=== PATIENT | male | born 1950 | race Two or more races ===

== ENCOUNTER 2017-01-09 14:53 | Emergency (ER) | payer OTHER ==
[~2017-01-09] VITALS: Ht 170.2 cm; Wt 86.2 kg
--- NOTE | 2017-01-09 14:53 | NUR ---
PRESENTS SELF TO ED DT ANXIETY AND DEPRESSION. PATIENT STATED " THINGS DOESNT GET ANY BETTER". DENIES HI/SI. VSS
[2017-01-09] MEDS ORDERED: OLANZAPINE 10 MG VIAL IM ONE ×2 (15:57→16:00)
[2017-01-09 15:58] LABS: BASOPHILS % (AUTO) 0.1 % (0.0-2.0); EOSINOPHILS % (AUTO) 0.5 % (0.0-6.0); HEMATOCRIT 47 % (39-51); HEMOGLOBIN 15.7 g/dL (13.5-17.5); LYMPHOCYTES % (AUTO) 12.4 % (20.0-44.0); MEAN CORPUSCULAR HEMOGLOBIN 29 PG (26.0-33.0); MEAN CORPUSCULAR HGB CONC 34 g/dl (31.0-36.0); MEAN CORPUSCULAR VOLUME 87 fL (80-96); MONOCYTES # (AUTO) 0.5 /CMM (0.1-1.30); MONOCYTES % (AUTO) 6.3 % (2.0-12.0); NEUTROPHILS # (AUTO) 6.4 /CMM (1.8-8.9); NEUTROPHILS % (AUTO) 80.7 % (43.0-81.0); PLATELET COUNT (AUTO) 138 /CMM (150-450); RDW COEFFICIENT OF VARIATION 12.5 (11.5-15.0); RED BLOOD CELL COUNT(AUTO) 5.36 MIL/uL (4.5-6.0); WHITE BLOOD COUNT (AUTO) 7.9 K/uL (4.3-11.0)
[2017-01-09] MEDS ORDERED: WATER FOR INJECTION,STERILE 10 ML ONE (15:58)
[2017-01-09 16:02] LABS: CALCIUM, SERUM 9.1 mg/dL (8.5-10.1); CARBON DIOXIDE 30 mmol/L (21-32); CHLORIDE 101 mmol/L (98-107); CREATININE 1.1 mg/dL (0.6-1.3); GLUCOSE 348 mg/dL (74-106); POTASSIUM 4.1 mmol/L (3.5-5.1); SODIUM SERUM 139 mmol/L (136-145); UREA NITROGEN, BLOOD 31 mg/dL (7-18)
--- NOTE | 2017-01-09 16:04 | NUR ---
URINE SAMPLE SENT TO LAB
--- NOTE | 2017-01-09 16:04 | NUR ---
MEDICATED PT ORDERED
[2017-01-09 16:08] LABS: ALANINE AMINOTRANSFERASE 52 U/L (12-78); ALBUMIN 4.3 g/dL (3.4-5.0); ALCOHOL, BLOOD < 3 mg/dL (0-0); ALKALINE PHOSPHATASE 81 U/L (46-116); ASPARTATE AMINOTRANSFERASE 24 U/L (15-37); BILIRUBIN,DIRECT 0.1 mg/dL (0.0-0.2); BILIRUBIN,TOTAL 0.5 mg/dL (0.2-1.0); TOTAL PROTEIN, SERUM 7.2 g/dL (6.4-8.2)
[2017-01-09 16:09] LABS: ACETAMINOPHEN < 10 ug/ml (10-30); SALICYLATE 0.7 mg/dL (2.8-20.0)
[2017-01-09 16:27] LABS: APPEARANCE,URINE CLEAR (CLEAR); BILIRUBIN,URINE NEGATIVE (NEGATIVE); BLOOD, URINE TRACE Ery/uL (NEGATIVE); COLOR,URINE YELLOW (YELLOW); KETONES,URINE 1+ (NEGATIVE); LEUKOCYTE ESTERASE ,URINE NEGATIVE (NEGATIVE); NITRITE, URINE NEGATIVE (NEGATIVE); PH,URINE 5.5 (5.0-8.0); PROTEIN,URINE 1+ mg/dl (NEGATIVE); UGLUCOSE 3+ mg/dL (NEGATIVE); UROBILINOGEN,URINE 0.2 EU/dL (0.2)
[2017-01-09 16:36] LABS: BACTERIA,URINE 1+ /HPF (None Seen); MUCUS,URINE Moderate /LPF (None Seen); RBC,URINE 0-2 /HPF (0-2); SQUAMOUS EPITHELIAL CELL,UR 0-2 /HPF (None Seen)
[2017-01-09 16:37] LABS: YEAST,URINE Rare /HPF (None Seen)
[2017-01-09 17:38] VITALS: BP 148/83
--- NOTE | 2017-01-09 17:46 | NUR ---
Patient discharged to home in stable condition. Written and verbal after care instructions given. Patient verbalizes understanding of instruction.
== END 2017-01-09 17:47 | disposition home or self-care (01) ==
LOC: ER 15:00
DX: F32.9 Major depressive disorder, single episode, unspecified (principal); F41.9 Anxiety disorder, unspecified; E11.9 Type 2 diabetes mellitus without complications; I10 Essential (primary) hypertension; J45.909 Unspecified asthma, uncomplicated
CPT/HCPCS: 36415; 80048-TC; 80076-TC; 80305; 81000-TC; 85025-TC; A4606; G0480; J3490; Z7610

== ENCOUNTER 2017-02-06 10:51 | Inpatient (IN) | payer OTHER ==
[~2017-02-06] VITALS: Ht 172.7 cm; Wt 74.8 kg
--- NOTE | 2017-02-06 11:00 | NUR ---
PT AMBULATORY TO ER BED 08 ACCOMPANIED BY . HERE FOR MEDICAL AND PSYCH EVAL. C/O WORSENING DEPRESSION AND INSOMIA. PT APPEARS ANXIOUS HEALTH SCIENCES DEPARTMENT CHAIR BUT DENIES SI/HI. PLACED ON MONITOR. NAD NOTED. AWAITING MD SOTO.
--- NOTE | 2017-02-06 11:14 | NUR ---
DR SANDHU AT BEDSIDE FOR EVAL.
--- NOTE | 2017-02-06 11:24 | NUR ---
MACHINE LEATHER TRIMMER AT BEDSIDE FOR BLOOD DRAW.
[2017-02-06 11:38] LABS: BASOPHILS % (AUTO) 0.5 % (0.0-2.0); EOSINOPHILS # (AUTO) 0.1 /CMM (0.0-0.7); EOSINOPHILS % (AUTO) 1.4 % (0.0-6.0); HEMATOCRIT 44 % (39-51); HEMOGLOBIN 14.8 g/dL (13.5-17.5); LYMPHOCYTES # (AUTO) 1.2 /CMM (0.8-4.8); MEAN CORPUSCULAR HEMOGLOBIN 29 PG (26.0-33.0); MEAN CORPUSCULAR HGB CONC 34 g/dl (31.0-36.0); MEAN CORPUSCULAR VOLUME 85 fL (80-96); MONOCYTES # (AUTO) 0.6 /CMM (0.1-1.30); MONOCYTES % (AUTO) 8.6 % (2.0-12.0); NEUTROPHILS # (AUTO) 4.9 /CMM (1.8-8.9); NEUTROPHILS % (AUTO) 71.5 % (43.0-81.0); PLATELET COUNT (AUTO) 150 /CMM (150-450); RDW COEFFICIENT OF VARIATION 11.9 (11.5-15.0); RED BLOOD CELL COUNT(AUTO) 5.13 MIL/uL (4.5-6.0); WHITE BLOOD COUNT (AUTO) 6.9 K/uL (4.3-11.0)
[2017-02-06 11:42] LABS: APPEARANCE,URINE CLEAR (CLEAR); BILIRUBIN,URINE NEGATIVE (NEGATIVE); BLOOD, URINE NEGATIVE Ery/uL (NEGATIVE); COLOR,URINE YELLOW (YELLOW); KETONES,URINE TRACE (NEGATIVE); LEUKOCYTE ESTERASE ,URINE NEGATIVE (NEGATIVE); NITRITE, URINE NEGATIVE (NEGATIVE); PROTEIN,URINE NEGATIVE (NEGATIVE); UGLUCOSE 3+ mg/dL (NEGATIVE); UROBILINOGEN,URINE 0.2 EU/dL (0.2)
[2017-02-06 11:47] LABS: CARBON DIOXIDE 32 mmol/L (21-32); CHLORIDE 101 mmol/L (98-107); CREATININE 0.8 mg/dL (0.6-1.3); GLUCOSE 324 mg/dL (74-106); POTASSIUM 4.4 mmol/L (3.5-5.1); SODIUM SERUM 138 mmol/L (136-145); UREA NITROGEN, BLOOD 28 mg/dL (7-18)
[2017-02-06 11:53] LABS: ALANINE AMINOTRANSFERASE 61 U/L (12-78); ALCOHOL, BLOOD < 3 mg/dL (0-0); ALKALINE PHOSPHATASE 76 U/L (46-116); ASPARTATE AMINOTRANSFERASE 22 U/L (15-37); BILIRUBIN,DIRECT 0.1 mg/dL (0.0-0.2); BILIRUBIN,TOTAL 0.5 mg/dL (0.2-1.0); TOTAL PROTEIN, SERUM 6.9 g/dL (6.4-8.2)
[2017-02-06 11:56] LABS: ACETAMINOPHEN 0 ug/ml (10-30); SALICYLATE 0.3 mg/dL (2.8-20.0)
[2017-02-06 11:56] LABS: BACTERIA,URINE None seen /HPF (None Seen); RBC,URINE NONE SEEN /HPF (0-2); SQUAMOUS EPITHELIAL CELL,UR Rare /HPF (None Seen); WBC,URINE 0-2 /HPF (0-3); YEAST,URINE Rare /HPF (None Seen)
[2017-02-06] MEDS ORDERED: ATOR10TA PO (12:18)
[2017-02-06] MEDS ORDERED: INSU3INS6 SQ (12:18)
[2017-02-06] MEDS ORDERED: OLME40TA3 PO (12:18)
[2017-02-06] MEDS ORDERED: CARV25TA2 PO (12:18)
[2017-02-06] MEDS ORDERED: INSU100I8 SQ (12:18)
[2017-02-06] MEDS ORDERED: MONT10TA22 PO (12:18)
[2017-02-06] MEDS ORDERED: AMIT10TA6 PO (12:18)
--- NOTE | 2017-02-06 12:48 | NUR ---
CALLED [facility] CLINICIAN FOR PSYCH EVAL, ETA OVER 1 HOUR
--- NOTE | 2017-02-06 14:44 | NUR ---
ELY RN AT BEDSIDE FOR PSYCH EVAL.
--- NOTE | 2017-02-06 15:28 | NUR ---
REPORT GIVEN TO AMBER. PT AWAITNG TRANSFER TO FLOOR.
[2017-02-06 15:45] VITALS: BP 156/76
--- NOTE | 2017-02-06 15:45 | NUR ---
[id number]: PT IS 66 YEARS OLD FEMALE ADMITTED ON 5150 FOR GD. ACCORDING TO THE HOLD PT HAS WORSENING DEPRESSION AND ANXIETY FOR THE PAST FEW WEEKS. PT IS SHAKING IN FEAR AND EXTREMELY ANXIOUS. PT HAS BEEN UNABLE TO FUNCTION AND TAKE CARE OF THE HOUSE. PT WAS FEARFUL, CRYING, GRABBING AT THE BEDSHEETS AND HANDRAILS. PT STATED, "I HAVEN'T SLEPT AND I CAN'T EAT. I'M VERY AFRAID. I'M IN BAD SHAPE."HIS REPORTS THAT SHE CAN'T LEAVE PT ALONE AT HOME AND PT HAS LOST 30 POUNDS IN THE PAST FEW WEEKS. PT IS UNABLE TO CARE FOR SELF. PT HAS DM, HTN, ASTHMA, POSSIBLE DEMENTIA, DEPRESSION, ANXIETY, PARANOID. PROVIDE WITH PT'S RIGHT HAND BOOK. DISCUSS ABOUT MEAL TIMES AND AIR FRESH BREAKS. PT IS AMBULATORY, SELF-CARE, CONTINENT. SKIN ASSESSMENT DONE. MRSA DONE. NOTIFIED DR. WANG AND DR. GABRIEL. FAMILY PRESENT UPON ADMISSION. ALL PAPERWORK AND COMPUTER DOCUMENTED. WILL ENDORSE TO INCOMING NURSE TO DOUBLE CHECK ALL PAPERWORK AND COMPUTER DOCUMENTATION TO BE COMPLETE.
[2017-02-06 16:00] VITALS: BP 156/76
[2017-02-06] MEDS ORDERED: LORAZEPAM 0.5 MG TABLET PO PRN (16:00)
[2017-02-06] MEDS ORDERED: ACETAMINOPHEN 325 MG TABLET PO PRN (16:00)
[2017-02-06] MEDS ORDERED: MAG HYDROX/AL HYDROX/SIMETH 30 ML UDC PO PRN (16:00)
[2017-02-06] MEDS ORDERED: MAGNESIUM HYDROXIDE 30 ML UDC PO PRN (16:00)
[2017-02-06] MEDS ORDERED: DEXTROSE 50%-WATER 50 ML DISP.SYRIN IV PRN (17:00)
[2017-02-06] MEDS: BLOOD SUGAR DIAGNOSTIC 1 EACH STRIP IN SCH ×2 (17:37→22:01)
--- NOTE | 2017-02-06 17:38 | NUR ---
[id number]: GAVE ATIVAN 0.5 MG PO DUE TI SEVERE ANXIETY UPON PT REQUEST AND WILL CONTINUE TO MONITOR FOR EFFECTIVENESS OF MEDICATION
[2017-02-06] MEDS: INSULIN REGULAR, HUMAN 100 UNIT/ML 3 ML VIAL SQ PRN (18:10)
--- NOTE | 2017-02-06 18:10 | NUR ---
[id number]: BLOOD SUGAR IS 275 MG/DL AND GAVE 12 UNITS OF REGULAR INSULIN
[2017-02-06 20:10] VITALS: BP 140/82
[2017-02-06] MEDS: ATORVASTATIN 10 MG TABLET PO SCH (21:53)
[2017-02-06] MEDS: CARVEDILOL 12.5 MG TABLET PO SCH (21:54)
[2017-02-06] MEDS: *INSULIN REGULAR(HUMULIN R)HUM 100 UNIT/ML VIAL SQ PRN (22:01)
[2017-02-07] MEDS: TEMAZEPAM 7.5 MG CAPSULE PO PRN ×2 (01:22→21:42)
--- NOTE | 2017-02-07 06:33 | NUR ---
RN GPS NOTES PATIENT RESTING HIS BED,EASILY GETS AGITED , NO ACUTE DISTRESS NOTED ,NO CHANGES IN STATUS. ALL NEEDS ATTENDED ANTICIPATED . WILL ENDORSE TO NEXT SHIFT FOR CONTINUITY CARE
--- NOTE | 2017-02-07 06:33 | NUR ---
RN GPS NOTES PATIENT RESTING HER BED,EASILY GETS AGITED , NO ACUTE DISTRESS NOTED ,NO CHANGES IN STATUS. ALL NEEDS ATTENDED ANTICIPATED . WILL ENDORSE TO NEXT SHIFT FOR CONTINUITY CARE
[2017-02-07 08:00] VITALS: BP 133/78
--- NOTE | 2017-02-07 08:00 | NUR ---
[id number]: BLOOD SUGAR 327, ADMINISTERED 16 UNITS OF REGULAR INSULIN
[2017-02-07] MEDS: BLOOD SUGAR DIAGNOSTIC 1 EACH STRIP IN SCH ×4 (08:27→21:49)
[2017-02-07] MEDS: MONTELUKAST SODIUM (10MG) 10 MG TABLET PO SCH (08:28)
[2017-02-07] MEDS: CARVEDILOL 12.5 MG TABLET PO SCH ×2 (08:29→21:41)
[2017-02-07] MEDS: INSULIN REGULAR, HUMAN 100 UNIT/ML 3 ML VIAL SQ PRN ×3 (08:36→18:13)
--- NOTE | 2017-02-07 12:30 | NUR ---
[id number]: BLOOD SUGAR 375, ADMINISTERED 20 UNITS OF REGULAR INSULIN
[2017-02-07] MEDS: risperiDONE 1 MG TABLET PO SCH ×2 (13:29→17:04)
[2017-02-07] MEDS: DIVALPROEX SODIUM 250 MG TABLET.DR PO SCH ×2 (13:29→17:04)
--- NOTE | 2017-02-07 15:20 | NUR ---
Initial discharge plan: Pt. lives at home with his , Heena Lopez [phone] /Home with [address] [facility] [address] [facility] [address] and wants to return. SW will follow up with pt's and will help form a safe and proper discharge.
--- NOTE | 2017-02-07 15:21 | NUR ---
UR update: Pt. is authorized for 6 days (review is due on 02/11/17) from [facility] [phone] ext [phone]. Auth # [id number]
[2017-02-07 16:00] VITALS: BP 131/65
[2017-02-07] MEDS: BENZTROPINE MESYLATE (1 MG) 1 MG TABLET PO SCH (17:04)
--- NOTE | 2017-02-07 17:30 | NUR ---
GPS/RN UNABLE TO TAKE BS WITH ACCUCHECK MACHINE, LAB AWARE AND STATED TO PUT ORDER FOR STAT GLUCOSE, AWAITING ON LAB TO DRAW BLOOD
--- NOTE | 2017-02-07 18:14 | NUR ---
GPS/RN BS 311, ADMINISTERED 16 UNITS OF REGULAR INSULIN, WILL CONTINUE TO MONITOR.
[2017-02-07 20:06] VITALS: BP 133/70
[2017-02-07] MEDS: ATORVASTATIN 10 MG TABLET PO SCH (21:41)
[2017-02-07] MEDS: *INSULIN REGULAR(HUMULIN R)HUM 100 UNIT/ML VIAL SQ PRN (21:48)
[2017-02-07] MEDS: INSULIN DETEMIR 100 UNIT/ML CARTRIDGE SQ SCH (21:49)
--- NOTE | 2017-02-08 06:34 | NUR ---
RN GPS NOTES PATIENT RESTING HIS BED,EASILY GETS AGITED , NO ACUTE DISTRESS NOTED ,NO CHANGES IN STATUS. ALL NEEDS ATTENDED ANTICIPATED . DURING SHIFT PT. SLEPT 3 HOURS ,WILL ENDORSE TO NEXT SHIFT FOR CONTINUITY CARE
--- NOTE | 2017-02-08 08:00 | NUR ---
PS-RN-NOTES: BLOOD SUGAR 234, ADMINISTERED 8 UNITS OF REGULAR INSULIN
[2017-02-08] MEDS: BENZTROPINE MESYLATE (1 MG) 1 MG TABLET PO SCH ×2 (08:16→16:19)
[2017-02-08] MEDS: CARVEDILOL 12.5 MG TABLET PO SCH ×2 (08:17→21:35)
[2017-02-08] MEDS: risperiDONE 1 MG TABLET PO SCH ×3 (08:17→16:19)
[2017-02-08] MEDS: MONTELUKAST SODIUM (10MG) 10 MG TABLET PO SCH (08:17)
[2017-02-08] MEDS: DIVALPROEX SODIUM 250 MG TABLET.DR PO SCH ×3 (08:17→16:19)
[2017-02-08] MEDS: INSULIN REGULAR, HUMAN 100 UNIT/ML 3 ML VIAL SQ PRN ×3 (08:23→17:41)
[2017-02-08] MEDS: BLOOD SUGAR DIAGNOSTIC 1 EACH STRIP IN SCH ×4 (08:24→22:07)
[2017-02-08 08:36] VITALS: BP 136/73
--- NOTE | 2017-02-08 12:30 | NUR ---
PS-RN-NOTES: BLOOD SUGAR 313, ADMINISTERED 16 UNITS OF REGULAR INSULIN
[2017-02-08 16:13] VITALS: BP 112/62
--- NOTE | 2017-02-08 18:00 | NUR ---
PS-RN-NOTES: BLOOD SUGAR 248, ADMINISTERED 8 UNITS OF REGULAR INSULIN
[2017-02-08 20:20] VITALS: BP 121/67
[2017-02-08] MEDS: ATORVASTATIN 10 MG TABLET PO SCH (21:35)
[2017-02-08] MEDS: *INSULIN REGULAR(HUMULIN R)HUM 100 UNIT/ML VIAL SQ PRN (22:15)
[2017-02-08] MEDS: INSULIN DETEMIR 100 UNIT/ML CARTRIDGE SQ SCH (22:16)
[2017-02-09] MEDS: BLOOD SUGAR DIAGNOSTIC 1 EACH STRIP IN SCH ×4 (07:49→22:54)
[2017-02-09] MEDS: INSULIN REGULAR, HUMAN 100 UNIT/ML 3 ML VIAL SQ PRN ×3 (07:57→17:32)
[2017-02-09 08:17] VITALS: BP 123/70
[2017-02-09] MEDS: risperiDONE 1 MG TABLET PO SCH ×3 (08:29→16:00)
[2017-02-09] MEDS: DIVALPROEX SODIUM 250 MG TABLET.DR PO SCH ×2 (08:29→12:41)
[2017-02-09] MEDS: MONTELUKAST SODIUM (10MG) 10 MG TABLET PO SCH (08:29)
[2017-02-09] MEDS: BENZTROPINE MESYLATE (1 MG) 1 MG TABLET PO SCH ×2 (08:29→16:00)
[2017-02-09] MEDS: CARVEDILOL 12.5 MG TABLET PO SCH ×2 (08:29→21:02)
--- NOTE | 2017-02-09 13:02 | NUR ---
UR update: LAURA left a voicemail for MARILYN Morales from [facility] PH: [phone] EXT [phone] regarding pt's discharge today. Laura was informed that LAURA will call back tomorrow with discharge details. AUTH # [id number] Addendum: 02/09/17 at 1305 by CIARRA SANCHEZ disregard.information belongs to another patient
[2017-02-09 16:26] VITALS: BP 103/53
[2017-02-09 20:14] VITALS: BP 117/68
[2017-02-09] MEDS: DIVALPROEX SODIUM 500 MG TABLET.DR PO SCH (21:00)
[2017-02-09] MEDS: ATORVASTATIN 10 MG TABLET PO SCH (21:01)
[2017-02-09] MEDS: *INSULIN REGULAR(HUMULIN R)HUM 100 UNIT/ML VIAL SQ PRN (22:56)
[2017-02-09] MEDS: INSULIN DETEMIR 100 UNIT/ML CARTRIDGE SQ SCH (22:57)
[2017-02-10] MEDS: BLOOD SUGAR DIAGNOSTIC 1 EACH STRIP IN SCH ×4 (07:42→21:28)
[2017-02-10 08:00] VITALS: BP 128/71
[2017-02-10] MEDS: BENZTROPINE MESYLATE (1 MG) 1 MG TABLET PO SCH ×2 (08:22→08:38)
[2017-02-10] MEDS: CARVEDILOL 12.5 MG TABLET PO SCH ×3 (08:22→20:40)
[2017-02-10] MEDS: INSULIN REGULAR, HUMAN 100 UNIT/ML 3 ML VIAL SQ PRN ×3 (08:24→17:37)
--- NOTE | 2017-02-10 08:30 | NUR ---
SAMPLE SAWYER-NOTES PATIENT BLOOD SUGAR WAS 182 MG/DL, 4 UNITS OF HUMULIN R GIVEN ORDERED.
[2017-02-10] MEDS: risperiDONE 1 MG TABLET PO SCH ×3 (08:38→16:59)
[2017-02-10] MEDS: MONTELUKAST SODIUM (10MG) 10 MG TABLET PO SCH (08:39)
[2017-02-10] MEDS: DIVALPROEX SODIUM 250 MG TABLET.DR PO SCH ×2 (08:39→12:19)
--- NOTE | 2017-02-10 12:30 | NUR ---
PAPER SUPERVISOR-NOTES PATIENT BLOOD SUGAR WAS 229 MG/DL, 8 UNITS OF HUMULIN R GIVEN ORDERED.
[2017-02-10] MEDS ORDERED: BENZTROPINE MESYLATE (1 MG) 1 MG TABLET PO PRN (13:30)
--- NOTE | 2017-02-10 14:53 | NUR ---
LAURA spoke with , Heena Lopez [phone] who asked for a letter stating her is at the hospital. LAURA has produced the latter and it is in the patient's chart to be picked up.
[2017-02-10] MEDS: VENLAFAXINE XR 75 MG CAP.SR.24H PO SCH (15:06)
[2017-02-10 16:04] VITALS: BP 119/55
--- NOTE | 2017-02-10 17:45 | NUR ---
BREAST PULLER-NOTES PATIENT BLOOD SUGAR WAS 364MG/DL, 20 UNITS OF HUMULIN R GIVEN ORDERED. NO C/O OF ANY DISCOMFORT OR S/SX OF HYPERGLYCEMIA AT THIS TIME.WILL CONT. MONITORING.
[2017-02-10] MEDS: DIVALPROEX SODIUM 500 MG TABLET.DR PO SCH (19:39)
[2017-02-10] MEDS: ATORVASTATIN 10 MG TABLET PO SCH (21:22)
[2017-02-10] MEDS: *INSULIN REGULAR(HUMULIN R)HUM 100 UNIT/ML VIAL SQ PRN (21:38)
[2017-02-10] MEDS: INSULIN DETEMIR 100 UNIT/ML CARTRIDGE SQ SCH (21:41)
--- NOTE | 2017-02-10 21:43 | NUR ---
GPS/RN NOTE: ACCUCHECK 221 MG/DL, 4 UNITS REG. INSULIN ADMINISTERED, HAD JELLO PER REQUEST FOR SNACKS.
[2017-02-11 02:20] VITALS: BP 103/53
[2017-02-11] MEDS: BLOOD SUGAR DIAGNOSTIC 1 EACH STRIP IN SCH ×4 (07:08→21:43)
--- NOTE | 2017-02-11 07:08 | NUR ---
GPS/RN NOTE: ACCUCHECK 164 MG/DL.
[2017-02-11 08:00] VITALS: BP 110/61
[2017-02-11] MEDS: MONTELUKAST SODIUM (10MG) 10 MG TABLET PO SCH (08:48)
[2017-02-11] MEDS: risperiDONE 1 MG TABLET PO SCH ×2 (08:48→16:26)
[2017-02-11] MEDS: DIVALPROEX SODIUM 250 MG TABLET.DR PO SCH ×2 (08:48→12:17)
[2017-02-11] MEDS: VENLAFAXINE XR 75 MG CAP.SR.24H PO SCH (08:48)
[2017-02-11] MEDS: CARVEDILOL 12.5 MG TABLET PO SCH ×2 (08:49→21:16)
[2017-02-11] MEDS: INSULIN REGULAR, HUMAN 100 UNIT/ML 3 ML VIAL SQ PRN ×3 (08:52→17:38)
--- NOTE | 2017-02-11 08:56 | NUR ---
INFORMATION TECHNOLOGY TECHNICIAN-NOTES PATIENT BLOOD SUGAR WAS 164 MG/DL, 4 UNITS OF HUMULIN R GIVEN ORDERED.
--- NOTE | 2017-02-11 12:23 | NUR ---
COMBER SETTER-NOTES PATIENT BLOOD SUGAR WAS 197 MG/DL, 4 UNITS OF HUMULIN R GIVEN ORDERED.
--- NOTE | 2017-02-11 15:04 | NUR ---
UR update: LAURA spoke with MARILYN Solano from [facility] [phone] ext [phone] and pt. is authorized until Tuesday and a review is due on Tuesday02/14/17 . Auth # [id number]
[2017-02-11 16:03] VITALS: BP 112/61
--- NOTE | 2017-02-11 17:39 | NUR ---
FINANCE CONTROLLER-NOTES PATIENT BLOOD SUGAR WAS 167 MG/DL, 4 UNITS OF HUMULIN R GIVEN ORDERED.
[2017-02-11] MEDS: DIVALPROEX SODIUM 500 MG TABLET.DR PO SCH (19:38)
[2017-02-11 20:00] VITALS: BP 160/74
[2017-02-11] MEDS: ATORVASTATIN 10 MG TABLET PO SCH (21:17)
[2017-02-11] MEDS: INSULIN DETEMIR 100 UNIT/ML CARTRIDGE SQ SCH (21:39)
[2017-02-11] MEDS: *INSULIN REGULAR(HUMULIN R)HUM 100 UNIT/ML VIAL SQ PRN (21:39)
[2017-02-11] MEDS: TEMAZEPAM 7.5 MG CAPSULE PO PRN (21:55)
[2017-02-11 23:00] VITALS: BP 135/78
--- NOTE | 2017-02-12 06:37 | NUR ---
RN GPS NOTES PATIENT RESTING HIS BED , NO ACUTE DISTRESS NOTED ,NO CHANGES IN STATUS. ALL NEEDS ATTENDED ANTICIPATED . WILL ENDORSE TO NEXT SHIFT FOR CONTINUITY CARE
[2017-02-12] MEDS: BLOOD SUGAR DIAGNOSTIC 1 EACH STRIP IN SCH ×4 (07:40→21:25)
[2017-02-12 08:00] VITALS: BP 136/67
[2017-02-12] MEDS: risperiDONE 1 MG TABLET PO SCH ×2 (09:05→16:34)
[2017-02-12] MEDS: MONTELUKAST SODIUM (10MG) 10 MG TABLET PO SCH (09:05)
[2017-02-12] MEDS: DIVALPROEX SODIUM 250 MG TABLET.DR PO SCH ×2 (09:05→12:15)
[2017-02-12] MEDS: VENLAFAXINE XR 75 MG CAP.SR.24H PO SCH (09:05)
[2017-02-12] MEDS: CARVEDILOL 12.5 MG TABLET PO SCH ×2 (09:06→21:00)
[2017-02-12] MEDS: INSULIN REGULAR, HUMAN 100 UNIT/ML 3 ML VIAL SQ PRN ×4 (09:18→21:31)
--- NOTE | 2017-02-12 09:19 | NUR ---
FACTORY MACHINE COMPUTER OPERATOR-NOTES PATIENT BLOOD SUGAR WAS 155 MG/DL, 2 UNITS OF HUMULIN R GIVEN ORDERED.
--- NOTE | 2017-02-12 12:23 | NUR ---
FLEET ADMINISTRATIVE ASSISTANT-NOTES PATIENT BLOOD SUGAR WAS 219 MG/DL, 8 UNITS OF HUMULIN R GIVEN ORDERED.
[2017-02-12 16:00] VITALS: BP 143/74
--- NOTE | 2017-02-12 17:32 | NUR ---
BARIATRIC SURGEON-NOTES PATIENT BLOOD SUGAR WAS 271 MG/DL, 12 UNITS OF HUMULIN R GIVEN ORDERED.
[2017-02-12] MEDS: DIVALPROEX SODIUM 500 MG TABLET.DR PO SCH (19:29)
--- NOTE | 2017-02-12 19:52 | NUR ---
GPS/RN NOTE: AWAKE, SITTING ON A CHAIR INSIDE HIS ROOM, CALM, QUIET, COOPERATIVE, INITIATES CONVERSATION. WILL MONITOR Q 15 MINS. FOR SAFETY.
[2017-02-12 20:00] VITALS: BP 146/73
[2017-02-12] MEDS: ATORVASTATIN 10 MG TABLET PO SCH (21:05)
[2017-02-12] MEDS: INSULIN DETEMIR 100 UNIT/ML CARTRIDGE SQ SCH (21:27)
[2017-02-13] MEDS: BLOOD SUGAR DIAGNOSTIC 1 EACH STRIP IN SCH ×4 (07:55→21:41)
[2017-02-13 08:00] VITALS: BP 125/62
[2017-02-13] MEDS: risperiDONE 1 MG TABLET PO SCH ×2 (09:04→17:03)
[2017-02-13] MEDS: VENLAFAXINE XR 75 MG CAP.SR.24H PO SCH (09:04)
[2017-02-13] MEDS: CARVEDILOL 12.5 MG TABLET PO SCH ×2 (09:05→20:27)
[2017-02-13] MEDS: DIVALPROEX SODIUM 250 MG TABLET.DR PO SCH ×2 (09:05→12:53)
[2017-02-13] MEDS: MONTELUKAST SODIUM (10MG) 10 MG TABLET PO SCH (09:06)
[2017-02-13] MEDS: INSULIN REGULAR, HUMAN 100 UNIT/ML 3 ML VIAL SQ PRN ×2 (12:48→17:33)
[2017-02-13 16:00] VITALS: BP 116/64
[2017-02-13] MEDS: DIVALPROEX SODIUM 500 MG TABLET.DR PO SCH (19:41)
[2017-02-13 20:35] VITALS: BP 123/72
--- NOTE | 2017-02-13 20:36 | NUR ---
GPS/RN NOTEl; PATIENT UP INSIDE HIS ROOM, CALM, QUIET. AMBULATES IN AND OUT OF HIS ROOM. REPORTED NO DISCOMFORT. WILL CONTINUE TO MONITOR.
[2017-02-13] MEDS: ATORVASTATIN 10 MG TABLET PO SCH (21:01)
[2017-02-13] MEDS: *INSULIN REGULAR(HUMULIN R)HUM 100 UNIT/ML VIAL SQ PRN (21:38)
[2017-02-13] MEDS: INSULIN DETEMIR 100 UNIT/ML CARTRIDGE SQ SCH (21:39)
--- NOTE | 2017-02-13 21:40 | NUR ---
GPS/RN NOTE: ACCUCHECK 204 MG/DL, 4 UNITS REGULAR INSULIN SC ADMINISTERED. HS SNACKS GIVEN
[2017-02-14] MEDS: BLOOD SUGAR DIAGNOSTIC 1 EACH STRIP IN SCH ×4 (07:21→21:58)
[2017-02-14] MEDS: MONTELUKAST SODIUM (10MG) 10 MG TABLET PO SCH (07:54)
[2017-02-14] MEDS: CARVEDILOL 12.5 MG TABLET PO SCH ×2 (07:55→21:50)
[2017-02-14] MEDS: VENLAFAXINE XR 75 MG CAP.SR.24H PO SCH (07:55)
[2017-02-14] MEDS: DIVALPROEX SODIUM 250 MG TABLET.DR PO SCH ×2 (07:55→12:12)
[2017-02-14] MEDS: risperiDONE 1 MG TABLET PO SCH ×2 (07:56→16:41)
[2017-02-14 08:00] VITALS: BP 140/62
[2017-02-14] MEDS: INSULIN REGULAR, HUMAN 100 UNIT/ML 3 ML VIAL SQ PRN ×2 (12:04→17:40)
[2017-02-14 16:08] VITALS: BP 120/68
--- NOTE | 2017-02-14 16:27 | NUR ---
UR update: LAURA left a voicemail for MARILYN Solano from [facility] [phone] ext [phone] asking for further authorizations. Auth # [id number].
[2017-02-14 16:28] LABS: CHOLESTEROL 99 mg/dL (<200); HDL CHOLESTEROL 33 mg/dL (40-60); LDL 49 mg/dL (0-99); TRIGLYCERIDES 53 mg/dL (30-150)
--- NOTE | 2017-02-14 19:30 | NUR ---
GPS RN NOTE, RECEIVED PATIENT AWAKE AND IN BED, NO S/S OR COMPLAINTS OF PAIN AT THIS TIME. PATIENT IS DISPLAYING NO S/S OF APPARENT DISTRESS AT THIS TIME. PATIENT BREATHING IS UNLABORED WITH EQUAL RISE AND FALL OF THE CHEST. PATIENT IS ALERT AND ORIENTED X 3 ON ROOM AIR WITH A SPO2 96%. PATIENT COMPLAINT WITH MEDICATION, ANXIOUS, COOPERATIVE, GUARDED, SUSPICIOUS, AND NEEDS REORIENTATION. PATIENT DENIES SUICIDE AND HOMICIDAL IDEATIONS AT THIS TIME. PATIENT ASSISTED WITH TURNING AND REPOSITIONING Q2HR AND PRN FOR COMFORT AND CIRCULATION. PATIENT HAS NO NEEDS AT THIS TIME. PATIENT EDUCATED ON THE USE OF THE CALL RODRIGUES. PATIENT BED SIDE RAILS UP X2 FOR SAFETY, BED IS LOCKED AND LOW WILL CONTINUE TO MONITOR AND MAINTAIN SAFETY.
[2017-02-14] MEDS: DIVALPROEX SODIUM 500 MG TABLET.DR PO SCH (20:44)
[2017-02-14] MEDS: ATORVASTATIN 10 MG TABLET PO SCH (21:49)
--- NOTE | 2017-02-14 21:50 | NUR ---
GPS RN NOTE, I ONLY TOOK ONE TAB OF COREG 12.5MG PO FOR THIS PATIENT. PATIENT'S ORDER IS COREG 25MG PO Q12HR. REOPENED OMNICELL TO RETRIEVE ONE MORE TAB OF COREG 12.5MG TO EQUAL COREG 25MG ORDERED. PATIENT VITAL SIGNS ARE STABLE. GAVE COREG 25MG PO Q12HR ORDERED. WILL CONTINUE TO MONITOR THIS PATIENT.
--- NOTE | 2017-02-14 21:58 | NUR ---
GPS RN NOTE, PERFORMED ACCU CHECK ON PATIENT WITH A BLOOD SUGAR RESULT OF 139. GAVE SNACK AND ORANGE JUICE. ALSO GAVE 2 UNITS OF REGULAR INSULIN PER SLIDING SCALE AND 8 UNITS OF LEVEMIR ORDERED. WILL CONTINUE TO MONITOR THIS PATIENT.
[2017-02-14] MEDS ORDERED: DONEPEZIL 5 MG TABLET PO SCH (22:00)
[2017-02-14] MEDS: INSULIN DETEMIR 100 UNIT/ML CARTRIDGE SQ SCH (22:02)
[2017-02-14] MEDS: *INSULIN REGULAR(HUMULIN R)HUM 100 UNIT/ML VIAL SQ PRN (22:03)
[2017-02-14 22:27] VITALS: BP 148/81
[2017-02-15 06:38] LABS: BASOPHILS % (AUTO) 0.7 % (0.0-2.0); EOSINOPHILS % (AUTO) 1.1 % (0.0-6.0); HEMATOCRIT 37 % (39-51); LYMPHOCYTES # (AUTO) 1.1 /CMM (0.8-4.8); LYMPHOCYTES % (AUTO) 27.5 % (20.0-44.0); MEAN CORPUSCULAR HEMOGLOBIN 30 PG (26.0-33.0); MEAN CORPUSCULAR HGB CONC 35 g/dl (31.0-36.0); MEAN CORPUSCULAR VOLUME 86 fL (80-96); MONOCYTES # (AUTO) 0.3 /CMM (0.1-1.30); MONOCYTES % (AUTO) 8.7 % (2.0-12.0); NEUTROPHILS # (AUTO) 2.4 /CMM (1.8-8.9); PLATELET COUNT (AUTO) 106 /CMM (150-450); RDW COEFFICIENT OF VARIATION 12.5 (11.5-15.0); RED BLOOD CELL COUNT(AUTO) 4.36 MIL/uL (4.5-6.0); WHITE BLOOD COUNT (AUTO) 3.9 K/uL (4.3-11.0)
[2017-02-15 07:06] LABS: ALBUMIN 3.1 g/dL (3.4-5.0); BILIRUBIN,TOTAL 0.4 mg/dL (0.2-1.0); CALCIUM, SERUM 8.4 mg/dL (8.5-10.1); CREATININE 0.7 mg/dL (0.6-1.3); POTASSIUM 3.8 mmol/L (3.5-5.1); TOTAL PROTEIN, SERUM 5.7 g/dL (6.4-8.2)
[2017-02-15] MEDS: BLOOD SUGAR DIAGNOSTIC 1 EACH STRIP IN SCH ×4 (07:32→21:04)
[2017-02-15] MEDS: INSULIN REGULAR, HUMAN 100 UNIT/ML 3 ML VIAL SQ PRN ×4 (07:37→21:11)
[2017-02-15 08:00] VITALS: BP 136/58
[2017-02-15] MEDS: CARVEDILOL 12.5 MG TABLET PO SCH ×2 (08:28→20:15)
[2017-02-15] MEDS: DIVALPROEX SODIUM 250 MG TABLET.DR PO SCH ×2 (08:28→12:28)
[2017-02-15] MEDS: risperiDONE 1 MG TABLET PO SCH ×3 (08:29→16:49)
[2017-02-15] MEDS: MONTELUKAST SODIUM (10MG) 10 MG TABLET PO SCH (08:29)
[2017-02-15] MEDS ORDERED: VENLAFAXINE XR 75 MG CAP.SR.24H PO SCH (09:00)
[2017-02-15] MEDS ORDERED: VENLAFAXINE XR 75 MG CAP.SR.24H PO STA (09:09)
--- NOTE | 2017-02-15 15:58 | NUR ---
UR update: SW received a voicemail from MARILYN Solano from [facility] [phone] ext [phone] stating pt. is authorized for 02/14, 02/15, 02/16. Auth # [id number].
--- NOTE | 2017-02-15 16:03 | NUR ---
Pt. was referred to [facility] Partial Hospitalization Program [address] [place], [place] [id number] fax [phone]. Pt. agrees to attend the day program.
[2017-02-15 16:06] VITALS: BP 138/69
--- NOTE | 2017-02-15 20:00 | NUR ---
GPS/RN OPENING NOTES PATIENT ALERT, ORIENTED X2, COOPERATIVE TO CARE, FAMILY CAME TO VISIT. MONITORING FOR ANY S/S OF HYPO/HYPERGLYCEMIA, DENIES PAIN AT THIS TIME, RESPIRATIONS EVEN AND UNLABORED, VERBALIZED NEEDS, WILL CONTINUE YO MONITOR.
[2017-02-15] MEDS: DIVALPROEX SODIUM 500 MG TABLET.DR PO SCH (20:15)
[2017-02-15 20:18] VITALS: BP 128/62
[2017-02-15 20:21] VITALS: BP 128/62
[2017-02-15] MEDS: ATORVASTATIN 10 MG TABLET PO SCH (21:04)
[2017-02-15] MEDS: INSULIN DETEMIR 100 UNIT/ML CARTRIDGE SQ SCH (21:12)
--- NOTE | 2017-02-15 22:03 | NUR ---
GPS/RN NOTES PERFORMED ACCUCHECK ON PATIENT WITH BLOOD SUGAR RESULT OF 143. OFFERED SNACKS AND GAVE 2 UNITS OF REGULAR INSULIN PER SLIDING SCALE AND 8 UNITS OF LEVEMIR ORDERED.
--- NOTE | 2017-02-16 06:12 | NUR ---
GPS/RN CLOSING NOTES PATIENT IN BED, ABLE TO SLEEP DURING THE NIGHT. DENIES NO PAIN, RESPIRATIONS EVEN AND UNLABORED. WILL CONTINUE TO MONITOR AND ENDORSE TO AM RN FOR SAULO.
[2017-02-16] MEDS: BLOOD SUGAR DIAGNOSTIC 1 EACH STRIP IN SCH ×4 (07:58→21:43)
[2017-02-16 08:00] VITALS: BP 138/66
[2017-02-16] MEDS: VENLAFAXINE XR 75 MG CAP.SR.24H PO SCH (08:58)
[2017-02-16] MEDS: risperiDONE 1 MG TABLET PO SCH (08:58)
[2017-02-16] MEDS: CARVEDILOL 12.5 MG TABLET PO SCH ×2 (08:59→21:21)
[2017-02-16] MEDS: DIVALPROEX SODIUM 250 MG TABLET.DR PO SCH ×2 (08:59→13:25)
[2017-02-16] MEDS: MONTELUKAST SODIUM (10MG) 10 MG TABLET PO SCH (09:00)
--- NOTE | 2017-02-16 15:36 | NUR ---
LAURA spoke with , Heena Lopez [phone] and she agrees to burr picker the patient tomorrow.
[2017-02-16 16:15] VITALS: BP 135/62
[2017-02-16] MEDS: DIVALPROEX SODIUM 500 MG TABLET.DR PO SCH (19:50)
[2017-02-16 20:18] VITALS: BP 139/66
[2017-02-16] MEDS: ATORVASTATIN 10 MG TABLET PO SCH (21:21)
[2017-02-16] MEDS: INSULIN DETEMIR 100 UNIT/ML CARTRIDGE SQ SCH (21:44)
[2017-02-16] MEDS ORDERED: risperiDONE 1 MG TABLET PO SCH (22:00)
--- NOTE | 2017-02-17 06:27 | NUR ---
RN GPS NOTES PATIENT RESTING HIS BED, NO ACUTE DISTRESS NOTED ,NO CHANGES IN STATUS. ALL NEEDS ATTENDED ANTICIPATED . WILL ENDORSE TO NEXT SHIFT FOR CONTINUITY CARE
[2017-02-17] MEDS: BLOOD SUGAR DIAGNOSTIC 1 EACH STRIP IN SCH ×2 (07:34→11:40)
[2017-02-17 08:00] VITALS: BP 128/62
[2017-02-17] MEDS: MONTELUKAST SODIUM (10MG) 10 MG TABLET PO SCH (08:03)
[2017-02-17] MEDS: VENLAFAXINE XR 75 MG CAP.SR.24H PO SCH (08:03)
[2017-02-17] MEDS: risperiDONE 1 MG TABLET PO SCH ×2 (08:04→12:26)
[2017-02-17] MEDS: DIVALPROEX SODIUM 250 MG TABLET.DR PO SCH ×2 (08:04→12:26)
[2017-02-17 08:05] VITALS: BP 128/62
[2017-02-17] MEDS: CARVEDILOL 12.5 MG TABLET PO SCH (08:05)
--- NOTE | 2017-02-17 09:15 | NUR ---
DR. GABRIEL GAVE AN ORDER TO D/C HOLD AND D/C HOME. PT. WITHOUT DISTRESS, DENIES SUICIDAL AND HOMICIDAL AND TO FOLLOW UP WITH PSYCH AND MEDICAL DOCTORS.
--- NOTE | 2017-02-17 12:33 | NUR ---
GPS RN: BENZTROPINE ADMINISTERED ORDERED PER DR. GABRIEL REQUEST. NO EPS SYMPTOMS NOTED AT THIS TIME.
--- NOTE | 2017-02-17 15:00 | NUR ---
GPS RN: PATIENT DISCHARGED HOME WITH [facility]. PATIENT IS A/O X4. PATIENT'S CONDITION IS STABLE FOR DISCHARGE, VS STABLE, PATIENT DENIES ANY SI/HI/AVH AT THE TIME OF DISCHARGE. ALL BELONGINGS RETURNED TO THE PATIENT, BELONGINGS FORM SIGNED. EDUCATIONAL EXIT CARE PRINTED, SIGNED AND PROVIDED TO THE PATIENT ALONG WITH PRESCRIPTIONS. PATIENT LEFT THE UNIT ACCOMPANIED BY THE AND STAFF MEMBER.
--- NOTE | 2017-02-17 15:36 | NUR ---
Discharge note: Discharged back home with , Heena Lopez [phone] at [address] [facility] [address] [facility] [address] . picked him up after 2:00PM. Pt. will follow up with psychiatrist Dr. Ruiz [address] [facility] [address], [place] [address] [phone] within 7 days of discharge and both patient and pt's agreed to follow through. Discharge paperwork has been signed, discharge instructions were provided to the patient and his . Pt. was calm, cooperative, denied suicidal/homicidal ideations and hallucinations. Prior to discharge, pt. requested to speak with the foster care social worker and after having a conversation about what to expect after discharge, pt. was calm and agreed to leave.
--- NOTE | 2017-02-18 14:13 | NUR ---
UR update: LAURA left a voicemail with discharge information for MARILYN Solano from [facility] [phone] ext [phone]. Auth # [id number].
== END 2017-02-17 15:00 | disposition home or self-care (01) | DRG 885 ==
LOC: ER 10:56 → GPS 15:54
PROVIDERS: ADMIT Psychiatry & Neurology Psychosomatic Medicine; ATTEND Psychiatry & Neurology Psychosomatic Medicine
DX: F31.9 Bipolar disorder, unspecified (principal); E11.9 Type 2 diabetes mellitus without complications; I10 Essential (primary) hypertension; F41.9 Anxiety disorder, unspecified; F22 Delusional disorders; K59.00 Constipation, unspecified; E78.5 Hyperlipidemia, unspecified; F29 Unspecified psychosis not due to a substance or known physiological condition; Z73.6 Limitation of activities due to disability
CPT/HCPCS: 36415; 70450-TC; 80048-TC; 80053-TC; 80061-TC; 80076-TC; 80164-TC; 80305; 81000-TC; 82947-TC; 82962-TC; 85025-TC; 87081-TC; A4606; G0480; J1815; Z7610